=== PATIENT | female | born 1965 | race African-American/Black ===

== ENCOUNTER 2017-12-23 09:17 | Outpatient (CLI) | payer BC | END 2017-12-23 09:18 | disposition home or self-care (01) | LOC: BICMAMMO 09:17 | PROVIDERS: ATTEND Family Medicine | DX: R92.8 Other abnormal and inconclusive findings on diagnostic imaging of breast (principal); N63.10 Unspecified lump in the right breast, unspecified quadrant | CPT/HCPCS: 77066; G0204; G0279 ==